=== PATIENT | female | born 1935 | race Caucasian/White ===

== ENCOUNTER 2017-11-03 08:37 | Emergency (ER) | payer MEDICARE, BC ==
[~2017-11-03] VITALS: Ht 157.5 cm; Wt 85.0 kg
[2017-11-03] MEDS ORDERED: NITROGLYCERIN 2% 1 GM OINT PKT TD STA (08:40)
[2017-11-03] MEDS ORDERED: ASPIRIN 81 MG TAB PO STA (08:40)
[2017-11-03 08:51] VITALS: Ht 157.5 cm; Wt 85.0 kg
[2017-11-03] MEDS ORDERED: NITROGLYCERIN (SL) 0.4 MG TAB SL PRN (09:00)
[2017-11-03] MEDS ORDERED: LORAZEPAM 2 MG INJ IV ONE (09:00)
--- NOTE | 2017-11-03 09:29 | RADRPT ---
PROCEDURE: XR Chest. CLINICAL INDICATION: chest pain TECHNIQUE: Single frontal view of the chest was obtained COMPARISON: None FINDINGS: The heart and mediastinum are within normal limits. There is mild right lower lobe atelectasis. The lungs are otherwise clear. There is mild elevation of the right diaphragm. There is no pleural effusion or pneumothorax. RPTAT: AA IMPRESSION: Mild right lower lobe atelectasis and elevation of the right diaphragm. .Eyad Walker MD, MD Date Time Electronically viewed and signed by .Eyad Walker MD, on 11/03/2017 09:28 .S/
[2017-11-03 09:47] LABS: BASOPHIL # 0.1 10^3/ul (0.0-0.1); BASOPHILS % 1.1 % (0.0-2.0); EOSINOPHILS # 0.3 10^3/ul (0.0-0.5); HEMATOCRIT 41.3 % (37.0-47.0); HEMOGLOBIN 13.9 g/dl (12.0-16.0); LYMPHOCYTES # 1.8 10^3/ul (0.8-2.9); LYMPHOCYTES % 32.6 % (15.0-51.0); MEAN CORPUSCULAR HEMOGLOBIN 31.8 pg (29.0-33.0); MEAN CORPUSCULAR HGB CONC 33.7 g/dl (32.0-37.0); MEAN CORPUSCULAR VOLUME 94.5 fl (82.0-101.0); MEAN PLATELET VOLUME 10.4 fl (7.4-10.4); MONOCYTE # 0.5 10^3/ul (0.3-0.9); MONOCYTES % 8.3 % (0.0-11.0); NEUTROPHILS % 52.8 % (39.0-77.0); PLATELET COUNT 259 10^3/UL (140-415); RED BLOOD COUNT 4.37 10^6/ul (4.20-5.40); RED CELL DISTRIBUTION WIDTH 13.2 % (11.5-14.5); WHITE BLOOD COUNT 5.7 10^3/ul (4.8-10.8)
[2017-11-03 10:08] LABS: ANION GAP 14 (8-16); BLOOD UREA NITROGEN 15 mg/dl (7-20); CALCIUM 9.4 mg/dl (8.4-10.2); CARBON DIOXIDE 25 mmol/L (21-31); CHLORIDE 110 mmol/L (97-110); CREATININE 0.88 mg/dl (0.44-1.00); GLUCOSE 109 mg/dl (70-220); POTASSIUM 4.2 mmol/L (3.5-5.1); SODIUM 145 mmol/L (135-144)
[2017-11-03] MEDS ORDERED: LORA0.5T PO (10:23)
[2017-11-03] MEDS ORDERED: ERGO500037 PO (10:23)
[2017-11-03] MEDS ORDERED: GABA100C14 PO (10:24)
[2017-11-03] MEDS ORDERED: TRAZ50TA18 PO (10:25)
[2017-11-03] MEDS ORDERED: OLAN5TAB5 PO (10:25)
[2017-11-03] MEDS ORDERED: MIRT30TA5 PO (10:25)
[2017-11-03 10:26] LABS: TROPONIN-I < 0.012 ng/ml (0.00-0.12)
[2017-11-03] MEDS ORDERED: ALEN70TA30 PO (10:26)
[2017-11-03] MEDS ORDERED: ACETAMINOPHEN 325 MG TAB PO PRN (11:00)
[2017-11-03] MEDS ORDERED: ONDANSETRON 4 MG INJ IV PRN (11:00)
[2017-11-03 12:33] VITALS: BP 120/63; PULSE 71; RESP 18
--- NOTE | 2017-11-03 13:46 | ERD ---
ER Documentation Chief Complaint Chief Complaint sob, chest pressure, anxiety today, denies chest pain HPI Patient is an 81-year-old female who presents with shortness of breath. She was brought in by ambulance. When she came in initially she was having difficulty with breathing and speaking. She has chest pain and says "it feels like her stopping on it". It started 1 hour prior and was constant. She has had no treatment as of yet. She says her primary doctor is Lonny Singh. She has a history of severe anxiety and does see a psychiatrist as well. ROS All systems reviewed and are negative except as per history of present illness. Medications Home Meds Reported Medications Alendronate Sodium* (Fosamax*) 70 Mg Tablet, 70 MG PO Q7D, #4 TAB 11/03/17 Mirtazapine* (Mirtazapine*) 30 Mg Tablet, 30 MG PO HS, TAB 11/03/17 Trazodone Hcl* (Desyrel*) 50 Mg Tab, 50 MG PO QHS, #30 TAB 11/03/17 Olanzapine* (Zyprexa*) 5 Mg Tablet, 5 MG PO DAILY, #30 TAB 11/03/17 Gabapentin* (Gabapentin*) 100 Mg Capsule, 100 MG PO TID, #90 CAP 11/03/17 Lorazepam* (Lorazepam*) 0.5 Mg Tablet, 0.5 MG PO HS Y for ANXIETY, TAB 11/03/17 Ergocalciferol (Vitamin D2) (VITAMIN D2) 50,000 Unit Capsule, 12833 UNIT PO WEEKLY, CAP 11/03/17 Allergies Allergies: Coded Allergies: ciprofloxacin (Verified Allergy, Severe, 11/03/17) PMhx/Soc History of Surgery: No Anesthesia Reaction: No Hx Neurological Disorder: No Hx Respiratory Disorders: No Hx Cardiac Disorders: No Hx Psychiatric Problems: Yes (major depression, psychosis) Hx Miscellaneous Medical Probl: No Hx Alcohol Use: No Hx Substance Use: No Hx Tobacco Use: No Smoking Status: Never smoker FmHx Family History: coronary disease Physical Exam Vitals Vital Signs Date Time Temp Pulse Resp B/P Pulse Ox O2 Delivery O2 Flow Rate FiO2 11/03/17 12:33 71 18 120/63 96 Room Air 11/03/17 09:30 Nasal Cannula 2 11/03/17 09:30 Nasal Cannula 2.0 11/03/17 08:51 98.0 50 26 146/58 100 Physical Exam Const: Occult he was speaking at this time Head: Atraumatic Eyes: Normal Conjunctiva ENT: Normal External Ears, Nose and Mouth. Neck: Full range of motion..~ No meningismus. Resp: Clear to auscultation bilaterally Cardio: Regular rate and rhythm, no murmurs Abd: Soft, non tender, non distended. Normal bowel sounds Skin: No petechiae or rashes Back: No midline or flank tenderness Ext: No cyanosis, or edema Neur: Awake and alert Psych: Anxious Result Diagram: 11/03/1792911/03/17929 Results 24 hrs Laboratory Tests Test 11/03/17 09:30 White Blood Count 5.710^3/ul Red Blood Count 4.3710^6/ul Hemoglobin 13.9g/dl Hematocrit 41.3% Mean Corpuscular Volume 94.5fl Mean Corpuscular Hemoglobin 31.8pg Mean Corpuscular Hemoglobin Concent 33.7g/dl Red Cell Distribution Width 13.2% Platelet Count 82334^3/UL Mean Platelet Volume 10.4fl Neutrophils % 52.8% Lymphocytes % 32.6% Monocytes % 8.3% Eosinophils % 5.0% Basophils % 1.1% Nucleated Red Blood Cells % 0.0/100WBC Neutrophils # 3.010^3/ul Lymphocytes # 1.810^3/ul Monocytes # 0.510^3/ul Eosinophils # 0.310^3/ul Basophils # 0.110^3/ul Nucleated Red Blood Cells # 0.010^3/ul Sodium Level 145mmol/L Potassium Level 4.2mmol/L Chloride Level 110mmol/L Carbon Dioxide Level 25mmol/L Anion Gap 14 Blood Urea Nitrogen 15mg/dl Creatinine 0.88mg/dl Glucose Level 109mg/dl Calcium Level 9.4mg/dl Troponin I < 0.012ng/ml Current Medications Medications (Trade) Dose Ordered Sig/Bhumika Route PRN Reason Start Time Stop Time Status Last Admin Dose Admin Aspirin (Aspirin) 162 mg ONCE STAT PO 11/03/17 08:40 11/03/17 08:42 DC 11/03/17 09:33 Nitroglycerin (Nitroglycerin 2% Oint) 1 inch ONCE STAT TD 11/03/17 08:40 11/03/17 08:42 DC 11/03/17 09:33 Nitroglycerin (Nitroglycerin (Sl Tab) 0.4 Mg) 1 tab Q5M UP TO 3 DOSES PRN SL CHEST PAIN 11/03/17 09:00 11/03/17 12:39 DC Lorazepam (Ativan) 0.5 mg ONCE ONCE IV 11/03/17 09:00 11/03/17 09:01 DC 11/03/17 09:34 Ondansetron HCl (Zofran Inj) 4 mg ER BRIDGE PRN IV NAUSEA AND/OR VOMITING 11/03/17 11:00 11/03/17 12:39 DC Acetaminophen (Tylenol Tab) 650 mg ER BRIDGE PRN PO MILD PAIN/FEVER 11/03/17 11:00 11/03/17 12:39 DC Procedures/MDM EKG #1 read by me: Rate/Rhythm: Regular rate and rhythm at a normal rate Intervals: Normal Impression: No evidence of ischemia or arrhythmia EKG #2 read by me: Rate/Rhythm: Regular rate and rhythm at a normal rate Intervals: Normal Impression: No evidence of ischemia or arrhythmia Chest x-ray shows no pneumonia or pneumothorax per radiology. Patient is a 31-year-old female who presents with shortness of breath and chest pain. She was given aspirin, nitroglycerin, and Ativan and after the Ativan she improved significantly. Her family is now here and says that she has severe anxiety and they feel that this is most likely related to psychiatric disease and not necessarily acute coronary syndrome. We did discuss the risk of acute coronary syndrome but at this point I do feel that that risk is low. I doubt pneumonia, pneumothorax, pulmonary embolism, or aortic dissection. The patient will be following up with her psychiatrist jose antonio at 7 PM the daughter is going to stay with her. The patient can return for any worsening symptoms. She was given a copy of her laboratory studies and chest x-ray report prior to discharge. Departure Diagnosis: Primary Impression: Anxiety Additional Impressions: Shortness of breath Chest pain Chest pain type: unspecified Qualified Code: R07.9 - Chest pain, unspecified type Condition: Fair Patient Instructions: Your Body's Response to Anxiety, Chest Pain, Uncertain Cause Referrals: Your doctors Additional Instructions: Keep the appointment with your Psychiatrist scheduled for jose antonio at 7PM. Return for any worsening symptoms. TAHIR FRANCIS MD Nov 03, 2017 13:46
== END 2017-11-03 12:35 | disposition home or self-care (01) ==
LOC: E/R 08:37
DX: F41.9 Anxiety disorder, unspecified (principal); R07.9 Chest pain, unspecified
CPT/HCPCS: 36415; 71010; 80048; 84484; 85025; 96374; 99285; J2060